=== PATIENT | female | born 1995 | race Caucasian/White ===

== ENCOUNTER 2019-10-14 22:19 | Emergency (ER) | payer SELFPAY ==
[~2019-10-14] VITALS: Ht 167.6 cm; Wt 59.0 kg
[2019-10-15 01:41] VITALS: BP 148/89
== END 2019-10-15 01:21 | disposition home or self-care (01) ==
LOC: EEVIPCON 22:19 → ER 22:21
DX: R05 Cough (principal); Z20.828 Contact with and (suspected) exposure to other viral communicable diseases
CPT/HCPCS: 99283; C9803; U0003

== ENCOUNTER → 2020-05-08 | Outpatient (CLI) | payer OTHER | END | disposition home or self-care (01) | LOC: LAB 09:18 | PROVIDERS: ATTEND Nurse Practitioner Family | DX: U07.1 COVID-19 (principal) | CPT/HCPCS: C9803; U0003 ==